=== PATIENT | male | born 1930 | race Caucasian/White ===

== ENCOUNTER 2019-01-06 09:02 | Outpatient (CLI) | payer MEDICARE ==
[2019-01-06 09:59] LABS: Estimated GFR-MDRD - POC Greater than 90
--- NOTE | 2019-01-07 11:58 | MRI ---
MRI PELVIS (PROSTATE) WITH AND WITHOUT IV CONTRAST: Date: 01/06/19 HISTORY: Prostate biopsy 7 years ago. PSA levels increasing over past year. TECHNIQUE: Multiplanar, multisequence MRI of the pelvis was performed with and without IV contrast using the pro state protocol. Review was also made on independent 3D workstation. FINDINGS: The prostate measures 4.4 x 3.9 x 4.0 cm with a volume of 36 mL. There is a 1.4 cm focal lesion of restricted diffusion with low signal on ADC map and postcontrast ar terial enhancement involving the anterior fibromuscular stroma. No other suspicious abnormalities are seen. The prostate capsule appears intact. The seminal vesicles are intact. No pelvic lymphadenopathy is se en. No abnormal areas of signal replacement on the T1-weighted sequences are noted to suggest osseous metastatic disease. 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 POS: DELPHINE
== END 2019-01-06 09:03 | disposition home or self-care (01) ==
LOC: TBSIIMAG 09:02
PROVIDERS: ATTEND Urology
DX: C61 Malignant neoplasm of prostate (principal)
CPT/HCPCS: 72197; 82565

== ENCOUNTER 2019-12-16 07:39 | Outpatient (CLI) | payer MEDICARE, OTHER ==
[2019-12-16 16:17] LABS: Hemoglobin 13.8 g/dL (14.0-18.0); Mean Corpuscular HGB CONC 34.2 g/dL (32.0-36.0); Mean Corpuscular Volume 99.7 fL (78.0-98.0); Mean Platelet Volume 8.7 fL (7.4-10.4); Platelet Count 141 thou/uL (130-400); RBC Distribution Width 12.3 % (11.5-14.5); Red Blood Cell (RBC) Count 4.05 mill/uL (4.70-6.10); White Blood Cell (WBC) Count 7.3 thou/uL (4.8-10.8)
[2019-12-16 16:32] LABS: Anion Gap 12 mmol/L (10-20); BUN (Urea Nitrogen) 18 mg/dL (8.4-25.7); Calc. Creatinine Clearance 0 mL/min (70-130); Calcium 9.5 mg/dL (7.8-10.44); Carbon Dioxide 26 mmol/L (23-31); Chloride 107 mmol/L (98-107); Estimated GFR-MDRD 87; Glucose 93 mg/dL (83-110); Potassium 5.1 mmol/L (3.5-5.1); Sodium 140 mmol/L (136-145)
[2019-12-16 16:34] LABS: Bilirubin Negative (Negative); Blood, Urine Negative (Negative); Clarity Clear (Clear); Glucose, Urine (Dipstick) Normal (Negative); Ketone, Urine Negative (Negative); Leukocyte 500 Leu/uL (Negative); Nitrite Negative (Negative); Protein, Urine (Dipstick) Negative (Neg-Trace); RBC/HPF 0-3 HPF (0-3); Specific Gravity, Urine 1.009 (1.002-1.036); Squamous Epithelial None Seen HPF (0-3); Urobilinogen Normal mg/dL (Less than 2); WBC/HPF 21-50 HPF (0-3)
[2019-12-16 16:36] LABS: Bacteria/HPF 1+ HPF (None Seen)
[2019-12-17 11:15] LABS: SARS-CoV-2 MS2 Positive; SARS-CoV-2 N Gene Negative; SARS-CoV-2 S Gene Negative; SARS-CoV-2 by NAA Not Detected (NotDetected); SARS-CoV-2 orf1ab Negative
== END 2019-12-16 07:40 | disposition home or self-care (01) ==
LOC: LABBT 07:39
PROVIDERS: ATTEND Urology
DX: Z01.818 Encounter for other preprocedural examination (principal); Z20.828 Contact with and (suspected) exposure to other viral communicable diseases; N40.0 Benign prostatic hyperplasia without lower urinary tract symptoms
CPT/HCPCS: 80048; 81001; 85027; 87086; 93005; U0003; 87077; 87635; 93010

== ENCOUNTER 2019-12-21 06:00 | Day surgery (SDC) | payer MEDICARE ==
[2019-12-16 10:27] VITALS: BMI 25.8
[2019-12-21] MEDS ORDERED: Levofloxacin 500 mg/D5W 100 ml Premix Bag ONE (06:30)
[2019-12-21] MEDS ORDERED: Fentanyl 100 MCG/2 ML VIAL ONE (07:10)
[2019-12-21] MEDS ORDERED: Oxybutynin 5 MG TAB ONE (08:23)
[2019-12-21] MEDS ORDERED: Ketorolac Tromethamine 30 MG/ML VIAL ONE (08:23)
[2019-12-21] MEDS ORDERED: Phenazopyridine HCl 100 MG TAB ONE (08:23)
--- NOTE | 2019-12-21 09:01 | OP ---
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 POSTOPERATIVE DIAGNOSIS: Enlarged prostate with lower urinary tract symptoms. PROCEDURE PERFORMED: UroLift. ANESTHESIA: TIVA. COMPLICATIONS: None. ESTIMATED BLOOD LOSS: Minimal. SPECIMEN: None. DESCRIPTION OF PROCEDURE: After informed consent, the patient was taken to the operating room, transferred to the table under his own power. Anesthesia was established. A time-out was performed, showing the correct patient, site, and procedure. Preoperative antibiotics were administered. He was prepped and draped in the lithotomy position. A 20-Grenadian cystoscope was inserted into the bladder. The cystoscopy bridge was replaced with the UroLift delivery device. The first treatment site was the patient's left side approximately 2 to 2.5 cm distal to the bladder neck. The distal tip of the delivery device was angled laterally approximately 20 degrees of this position to compress the lateral lobe. The trigger was pulled thereby deploying a needle containing the implant through the prostate. The needle was retracted and sustained a pull-through. The UroLift device was replaced and same procedure performed to the point, where the needle was again retracted, which this time did allow one end of the implant to be delivered to the capsular surface of the prostate. The implant was then tensioned to assure capsular seeding and removal of slack monofilament. The device was then angled back towards midline and slowly advanced proximally about 3 to 4 mm until cystoscopic verification of the monofilament being centered in the delivery bay. The urethral end piece was then affixed to the monofilament thereby tailoring the size of the implant. Excess filament was then severed. The delivery device was then readvanced into the bladder. The same procedure was repeated on the right side near the bladder neck deploying the second implant. Two additional implants, the 3rd and 4th were delivered just proximal to the verumontanum again one on the right and one on the left side of the prostate following the same technique. Cystoscopy then revealed persistent area of obstruction at the right side of the bladder neck with a small median lobe. One more implant was delivered at this point for dislocation of the prostate, tagging the small median lobe to the right side. A final cystoscopic view revealed no persistent obstruction with an excellent anterior channel. The bladder was then drained and refilled to about 200 mL to allow for void trial and recovery. Total number of implants used 6. The patient was then awoken from anesthesia, transferred back to his hospital bed and taken to PACU in stable condition, where he was discharged home upon recovery. IMPLANT LOCATION SUMMARY: 1. Left proximal prostatic urethra. 2. Right proximal prostatic urethra. 3. Left distal prostatic urethra. 4. Right distal prostatic urethra. 5. Right bladder neck. 6. Left proximal prostatic urethra - pull-through criteria. No active UTI. Conservative management has failed and surgical intervention is indicated. IPSS 24/5. Prostate volume on MRI, 36 mL. Job ID: [id number]
[2019-12-21] MEDS ORDERED: Lidocaine 1% PF 5 ML VIAL ONE (13:38)
[2019-12-21] MEDS ORDERED: PROPOFOL 200 MG/20 ML VIAL ONE (13:38)
== END 2019-12-21 11:00 | disposition home or self-care (01) ==
LOC: SDC 06:00
PROVIDERS: ATTEND Urology
PROC: 0T7D8DZ Dilation of Urethra with Intraluminal Device, Via Natural or Artificial Opening Endoscopic (ICD-10-PCS; principal; 2019-12-21)
DX: N40.1 Benign prostatic hyperplasia with lower urinary tract symptoms (principal); R35.0 Frequency of micturition; R35.1 Nocturia; R39.12 Poor urinary stream; R39.15 Urgency of urination; R39.16 Straining to void; C61 Malignant neoplasm of prostate; I10 Essential (primary) hypertension; I25.10 Atherosclerotic heart disease of native coronary artery without angina pectoris; M19.90 Unspecified osteoarthritis, unspecified site; F32.9 Major depressive disorder, single episode, unspecified; Z87.891 Personal history of nicotine dependence; Z79.02 Long term (current) use of antithrombotics/antiplatelets; Z79.82 Long term (current) use of aspirin; Z79.899 Other long term (current) drug therapy; Z95.2 Presence of prosthetic heart valve; Z95.5 Presence of coronary angioplasty implant and graft; Z95.820 Peripheral vascular angioplasty status with implants and grafts
CPT/HCPCS: C1889; J0690; J1885; J1956; J2704; J3010

== ENCOUNTER 2020-04-27 09:18 | Outpatient (CLI) | payer MEDICARE ==
[2020-04-27 10:06] LABS: Estimated GFR-MDRD - POC Greater than 90
[2020-04-27] MEDS ORDERED: Iopamidol 370 76% 100 ML VIAL ONE (17:52)
[2020-04-27] MEDS ORDERED: Iopamidol 370 76% 50 ML VIAL FS ONE (17:52)
== END 2020-04-27 09:19 | disposition home or self-care (01) ==
LOC: NM 09:18
PROVIDERS: ATTEND Urology
DX: C61 Malignant neoplasm of prostate (principal)
CPT/HCPCS: 74178; 78306; 82565; A9503; Q9967